=== PATIENT | female | born 1985 | race Caucasian/White ===

== ENCOUNTER 2018-02-24 14:07 | Emergency (ER) | payer OTHER ==
[~2018-02-24] VITALS: Ht 160 cm; Wt 52.2 kg
[2018-02-24] MEDS ORDERED: LAMICTAL100 MG (14:26)
[2018-02-24] MEDS ORDERED: KEPPRA500 MG (14:27)
== END 2018-02-24 19:18 | disposition home or self-care (01) ==
LOC: ER 14:07
DX: S00.83XA Contusion of other part of head, initial encounter (principal); W22.8XXA Striking against or struck by other objects, initial encounter; Y93.89 Activity, other specified; Y92.89 Other specified places as the place of occurrence of the external cause; Y99.8 Other external cause status

== ENCOUNTER 2023-08-11 05:44 | Day surgery (SDC) | payer OTHER ==
[2023-08-06 09:34] LABS: URINE APPEARANCE Clear; URINE BILIRRUBIN Negative (NEGATIVE); URINE BLOOD Small; URINE COLOR Yellow; URINE GLUCOSE Negative (NEGATIVE); URINE LEUKOCYTE Negative; URINE NITRATE Negative; URINE PROTEIN Negative (NEGATIVE); URINE UROBILINOGEN 0.2 E.U./dl
[2023-08-06 09:39] LABS: URINE BACTERIA 642.5 uL (0.0-1933); URINE EPITHELIAL CELLS 46.2 uL (0.0-38.8); URINE WBC 20.4 uL (0.0-23.2)
[2023-08-06 09:46] LABS: HEMATOCRIT 33.2 % (36.0-45.00); HEMOGLOBIN 11.1 g/dL (12.0-15.00); MEAN CELL VOLUME 83.9 fL (80.00-100.00); MEAN CORPUSCULAR HGB CONC 33.3 g/dl (32.0-36.0); PLATELET COUNT 299 K/uL (150-450); RED BLOOD COUNT 3.96 M/uL (4.00-6.00); RED CELL DISTRIBUTION WIDTH 15.1 % (11.5-14.5)
[2023-08-06 09:57] LABS: INR 1.05; PARTIAL THROMBOPLASTIN TIME 27.4 SECONDS (22.0-34.0)
[2023-08-06 10:04] LABS: ALBUMIN 4.2 gm/dL (3.4-5.0); BILIRUBIN TOTAL 0.36 mg/dL (0.3-1.2); CALCIUM 9.6 mg/dL (8.5-10.1); CREATININE SERUM 0.79 mg/dL (0.55-1.02); GFR 80.6; GLOBULINA 3.4 G/DL (2.4-3.5); POTASSIUM 3.88 mEq/L (3.5-5.1); TOTAL PROTEIN 7.6 gm/dL (6.4-8.2)
[~2023-08-11 05:44] MED LIST: KEPPRA500 MG; LAMICTAL100 MG; ZONEGRAN100 MG PO
[2023-08-11] MEDS ORDERED: CEFAZOLIN SODIUM 1,000 MG VIAL ONE (07:09)
[2023-08-11] MEDS ORDERED: POVIDONE-IODINE 118 ML BOTT TOP ONE (08:14)
[2023-08-11] MEDS ORDERED: CEFAZOLIN SODIUM 1,000 MG VIAL IV ONE (09:15)
[2023-08-11] MEDS ORDERED: HEMOSTATIC MATRIX 1 KIT KIT TOP ONE ×2 (09:26→09:45)
[2023-08-11] MEDS ORDERED: SURGIFLO APPLICATOR 1 EACH APPL TOP ONE ×2 (09:40→09:45)
[2023-08-11] MEDS ORDERED: ONDANSETRON HCL 2 MG/ML VIAL IV ONE (11:20)
[2023-08-11] MEDS ORDERED: ONDANSETRON HCL 2 MG/ML VIAL ONE (11:24)
== END 2023-08-11 14:10 | disposition home or self-care (01) ==
LOC: CIR.AMB 05:44
PROVIDERS: ATTEND Obstetrics & Gynecology
DX: N80.122 Deep endometriosis of left ovary (principal); N80.00 Endometriosis of the uterus, unspecified; N73.6 Female pelvic peritoneal adhesions (postinfective); Z64.1 Problems related to multiparity; Z30.2 Encounter for sterilization

== ENCOUNTER 2024-04-04 17:41 | Emergency (ER) | payer OTHER ==
[~2024-04-04] VITALS: Ht 160 cm; Wt 49.0 kg
[2024-04-04] MEDS ORDERED: DEXAMETHASONE SODIUM PHOSPHATE 4 MG/ML VIAL IM STA (20:41)
[2024-04-04] MEDS ORDERED: ORPHENADRINE CITRATE 30 MG/ML AMPUL IM STA (20:42)
[2024-04-04] MEDS ORDERED: KETOROLAC TROMETHAMINE 30 MG VIAL IM STA (20:43)
[2024-04-04] MEDS ORDERED: NORFLEX100MG PO (20:50)
== END 2024-04-04 22:53 | disposition home or self-care (01) ==
LOC: ER 17:43
DX: K08.89 Other specified disorders of teeth and supporting structures (principal)